=== PATIENT | male | born 1965 | race Asian ===

== ENCOUNTER 2016-09-25 08:09 | Outpatient (CLI) | payer BC ==
[2016-09-25 09:16] LABS: BASOPHILS % (AUTO) 0.3 % (0.0-2.0); EOSINOPHILS # (AUTO) 0.2 /CMM (0.0-0.7); EOSINOPHILS % (AUTO) 3.5 % (0.0-6.0); HEMATOCRIT 48 % (39-51); HEMOGLOBIN 16.2 g/dL (13.5-17.5); LYMPHOCYTES # (AUTO) 2.2 /CMM (0.8-4.8); LYMPHOCYTES % (AUTO) 39.9 % (20.0-44.0); MEAN CORPUSCULAR HEMOGLOBIN 29 PG (26.0-33.0); MEAN CORPUSCULAR HGB CONC 34 g/dl (31.0-36.0); MEAN CORPUSCULAR VOLUME 86 fL (80-96); MONOCYTES # (AUTO) 0.3 /CMM (0.1-1.30); MONOCYTES % (AUTO) 4.8 % (2.0-12.0); NEUTROPHILS # (AUTO) 2.9 /CMM (1.8-8.9); NEUTROPHILS % (AUTO) 51.5 % (43.0-81.0); PLATELET COUNT (AUTO) 177 /CMM (150-450); RDW COEFFICIENT OF VARIATION 12.5 (11.5-15.0); WHITE BLOOD COUNT (AUTO) 5.6 K/uL (4.3-11.0)
[2016-09-25 09:31] LABS: APPEARANCE,URINE CLEAR (CLEAR); BILIRUBIN,URINE NEGATIVE (NEGATIVE); BLOOD, URINE NEGATIVE Ery/uL (NEGATIVE); COLOR,URINE YELLOW (YELLOW); KETONES,URINE NEGATIVE (NEGATIVE); LEUKOCYTE ESTERASE ,URINE NEGATIVE (NEGATIVE); NITRITE, URINE NEGATIVE (NEGATIVE); PROTEIN,URINE NEGATIVE (NEGATIVE); UGLUCOSE 3+ mg/dL (NEGATIVE); UROBILINOGEN,URINE 0.2 EU/dL (0.2)
[2016-09-25 09:34] LABS: ADD URINE CULTURE NO; BACTERIA,URINE None seen /HPF (None Seen); RBC,URINE 0-2 /HPF (0-2); SQUAMOUS EPITHELIAL CELL,UR 0-2 /HPF (None Seen); WBC,URINE 0-2 /HPF (0-3)
[2016-09-25 09:37] LABS: ALBUMIN 4.1 g/dL (3.4-5.0); BILIRUBIN,TOTAL 0.7 mg/dL (0.2-1.0); CALCIUM, SERUM 9.1 mg/dL (8.5-10.1); CREATININE 0.9 mg/dL (0.6-1.3); POTASSIUM 4.4 mmol/L (3.5-5.1); TOTAL PROTEIN, SERUM 7.7 g/dL (6.4-8.2)
[2016-09-25 09:42] LABS: THYROID STIMULATING HORMONE 0.373 uIU/mL (0.358-3.74)
== END 2016-09-25 23:59 | disposition home or self-care (01) ==
LOC: CARD 08:09
PROVIDERS: ATTEND Family Medicine
DX: Z00.01 Encounter for general adult medical examination with abnormal findings (principal); E11.9 Type 2 diabetes mellitus without complications; I45.19 Other right bundle-branch block
CPT/HCPCS: 36415; 80053-TC; 80061-TC; 81000-TC; 84439-TC; 84443-TC; 85025-TC; 93307-TC

== ENCOUNTER 2016-10-01 09:03 | Outpatient (CLI) | payer BC | END 2016-10-01 23:59 | disposition home or self-care (01) | LOC: RAD 09:03 | PROVIDERS: ATTEND Family Medicine | DX: R76.11 Nonspecific reaction to tuberculin skin test without active tuberculosis (principal) | CPT/HCPCS: 71020-TC ==

== ENCOUNTER 2017-09-03 08:32 | Outpatient (CLI) | payer BC ==
[2017-09-03 09:09] LABS: BASOPHILS % (AUTO) 0.6 % (0.0-2.0); EOSINOPHILS # (AUTO) 0.2 /CMM (0.0-0.7); EOSINOPHILS % (AUTO) 3.3 % (0.0-6.0); HEMATOCRIT 46 % (39-51); HEMOGLOBIN 15.7 g/dL (13.5-17.5); LYMPHOCYTES # (AUTO) 2.6 /CMM (0.8-4.8); LYMPHOCYTES % (AUTO) 37.2 % (20.0-44.0); MEAN CORPUSCULAR HEMOGLOBIN 30 PG (26.0-33.0); MEAN CORPUSCULAR HGB CONC 34 g/dl (31.0-36.0); MEAN CORPUSCULAR VOLUME 87 fL (80-96); MONOCYTES # (AUTO) 0.3 /CMM (0.1-1.30); MONOCYTES % (AUTO) 5.1 % (2.0-12.0); NEUTROPHILS # (AUTO) 3.7 /CMM (1.8-8.9); NEUTROPHILS % (AUTO) 53.8 % (43.0-81.0); PLATELET COUNT (AUTO) 188 /CMM (150-450); RDW COEFFICIENT OF VARIATION 12.2 (11.5-15.0); WHITE BLOOD COUNT (AUTO) 6.9 K/uL (4.3-11.0)
[2017-09-03 09:37] LABS: ALBUMIN 3.9 g/dL (3.4-5.0); BILIRUBIN,TOTAL 0.6 mg/dL (0.2-1.0); CALCIUM, SERUM 9.2 mg/dL (8.5-10.1); CREATININE 0.9 mg/dL (0.6-1.3); POTASSIUM 4.3 mmol/L (3.5-5.1); TOTAL PROTEIN, SERUM 7.8 g/dL (6.4-8.2)
[2017-09-03 09:41] LABS: FREE T4 (FREE THYROXINE) 1.08 ng/dL (0.76-1.46); T4 (THYROXINE) 9.2 ug/dL (4.7-13.3); THYROID STIMULATING HORMONE 0.646 uIU/mL (0.358-3.74)
== END 2017-09-03 23:59 | disposition home or self-care (01) ==
LOC: LAB 08:32
PROVIDERS: ATTEND Family Medicine
DX: E11.65 Type 2 diabetes mellitus with hyperglycemia (principal); M10.9 Gout, unspecified
CPT/HCPCS: 36415; 80053-TC; 80061-TC; 84436-TC; 84439-TC; 84443-TC; 84550-TC; 85025-TC

== ENCOUNTER 2017-10-21 08:52 | Outpatient (CLI) | payer BC ==
[2017-10-21 09:50] LABS: BASOPHILS % (AUTO) 0.7 % (0.0-2.0); EOSINOPHILS % (AUTO) 3.9 % (0.0-6.0); HEMATOCRIT 45 % (39-51); HEMOGLOBIN 15.2 g/dL (13.5-17.5); LYMPHOCYTES # (AUTO) 2.3 /CMM (0.8-4.8); LYMPHOCYTES % (AUTO) 38.5 % (20.0-44.0); MEAN CORPUSCULAR HGB CONC 34 g/dl (31.0-36.0); MEAN CORPUSCULAR VOLUME 87 fL (80-96); MONOCYTES # (AUTO) 0.3 /CMM (0.1-1.30); MONOCYTES % (AUTO) 5.5 % (2.0-12.0); NEUTROPHILS % (AUTO) 51.4 % (43.0-81.0); PLATELET COUNT (AUTO) 200 /CMM (150-450); RDW COEFFICIENT OF VARIATION 12.4 (11.5-15.0); RED BLOOD CELL COUNT(AUTO) 5.14 MIL/uL (4.5-6.0); WHITE BLOOD COUNT (AUTO) 5.9 K/uL (4.3-11.0)
[2017-10-21 09:58] LABS: APPEARANCE,URINE CLEAR (CLEAR); BILIRUBIN,URINE NEGATIVE (NEGATIVE); BLOOD, URINE TRACE-INTA Ery/uL (NEGATIVE); COLOR,URINE YELLOW (YELLOW); KETONES,URINE NEGATIVE (NEGATIVE); LEUKOCYTE ESTERASE ,URINE NEGATIVE (NEGATIVE); NITRITE, URINE NEGATIVE (NEGATIVE); PROTEIN,URINE NEGATIVE (NEGATIVE); UGLUCOSE TRACE mg/dL (NEGATIVE); UROBILINOGEN,URINE 0.2 EU/dL (0.2)
[2017-10-21 10:02] LABS: BACTERIA,URINE None seen /HPF (None Seen); RBC,URINE 0-2 /HPF (0-2); SQUAMOUS EPITHELIAL CELL,UR 0-2 /HPF (None Seen); WBC,URINE 0-2 /HPF (0-3)
[2017-10-21 10:24] LABS: ALBUMIN 3.7 g/dL (3.4-5.0); BILIRUBIN,TOTAL 0.4 mg/dL (0.2-1.0); CREATININE 0.8 mg/dL (0.6-1.3); POTASSIUM 4.1 mmol/L (3.5-5.1); TOTAL PROTEIN, SERUM 7.4 g/dL (6.4-8.2)
[2017-10-21 10:25] LABS: THYROID STIMULATING HORMONE 1.055 uIU/mL (0.358-3.74)
[2018-01-17] MEDS ORDERED: METF-442 PO (03:24)
== END 2017-10-21 23:59 | disposition home or self-care (01) ==
LOC: LAB 08:52
PROVIDERS: ATTEND Family Medicine
DX: Z23 Encounter for immunization (principal); E11.65 Type 2 diabetes mellitus with hyperglycemia
CPT/HCPCS: 36415; 80053-TC; 80061-TC; 81000-TC; 84436-TC; 84439-TC; 84443-TC; 85025-TC

== ENCOUNTER 2017-12-18 20:19 | Emergency (ER) | payer BC ==
[~2017-12-18] VITALS: Ht 175.3 cm; Wt 63.5 kg
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
[2017-12-18] MEDS ORDERED: IBUPROFEN 400 MG TABLET PO ONE (21:30)
[2017-12-18] MEDS ORDERED: IBUPROFEN 400 MG TABLET ONE (22:02)
[2017-12-18 23:10] VITALS: BP 118/74
== END 2017-12-18 23:10 | disposition home or self-care (01) ==
LOC: ER 20:26
DX: S40.012A Contusion of left shoulder, initial encounter (principal); F17.200 Nicotine dependence, unspecified, uncomplicated; V43.52XA Car driver injured in collision with other type car in traffic accident, initial encounter; Y93.89 Activity, other specified; Y92.413 State road as the place of occurrence of the external cause; Y99.8 Other external cause status
CPT/HCPCS: 73030; 99284; A4606; Z7610

== ENCOUNTER 2018-01-16 21:29 | Inpatient (IN) | payer BC ==
[~2018-01-16] VITALS: Ht 175.3 cm; Wt 62.1 kg
--- NOTE | 2018-01-16 21:29 | NUR ---
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 PT IS HYPERTENSIVE AND TACHYCARDIC BUT OTHERWISE VSS A/OX4 ABLE TO MAKE NEEDS KNOWN. NO ACUTE DISTRESS NOTED AT THIS TIME. WILL CONTINUE TO MONITOR FOR ANY CHANGES DURING THE SHIFT.
--- NOTE | 2018-01-16 21:45 | NUR ---
Ibuprofen given for fever pending ERMD evaluation
[2018-01-16] MEDS ORDERED: IBUPROFEN 600 MG TABLET PO ONE ×2 (21:47→22:00)
[2018-01-16] MEDS ORDERED: CLINDAMYCIN 600 MG in IV D5W 100 ML IV ONE (22:30)
[2018-01-16] MEDS ORDERED: IV NS 0.9% 1,000 ML BAG IV ONE (22:30)
--- NOTE | 2018-01-16 22:47 | NUR ---
pt to ct via jarod
[2018-01-16] MEDS ORDERED: CLINDAMYCIN 900 MG/6 ML VIAL ONE (22:50)
[2018-01-16 23:14] LABS: EOSINOPHILS % (AUTO) 0.7 % (0.0-6.0); HEMATOCRIT 47 % (39-51); HEMOGLOBIN 15.9 g/dL (13.5-17.5); LYMPHOCYTES # (AUTO) 0.7 /CMM (0.8-4.8); LYMPHOCYTES % (AUTO) 6.2 % (20.0-44.0); MEAN CORPUSCULAR HEMOGLOBIN 30 PG (26.0-33.0); MEAN CORPUSCULAR HGB CONC 34 g/dl (31.0-36.0); MEAN CORPUSCULAR VOLUME 89 fL (80-96); MONOCYTES # (AUTO) 0.1 /CMM (0.1-1.30); MONOCYTES % (AUTO) 0.9 % (2.0-12.0); NEUTROPHILS # (AUTO) 10.6 /CMM (1.8-8.9); NEUTROPHILS % (AUTO) 92.2 % (43.0-81.0); PLATELET COUNT (AUTO) 171 /CMM (150-450); RDW COEFFICIENT OF VARIATION 12.2 (11.5-15.0); RED BLOOD CELL COUNT(AUTO) 5.32 MIL/uL (4.5-6.0); WHITE BLOOD COUNT (AUTO) 11.5 K/uL (4.3-11.0)
[2018-01-16 23:23] LABS: CALCIUM, SERUM 8.9 mg/dL (8.5-10.1); CARBON DIOXIDE 29 mmol/L (21-32); CHLORIDE 98 mmol/L (98-107); CREATININE 0.9 mg/dL (0.6-1.3); GLUCOSE 184 mg/dL (74-106); POTASSIUM 3.5 mmol/L (3.5-5.1); SODIUM SERUM 136 mmol/L (136-145); UREA NITROGEN, BLOOD 8 mg/dL (7-18)
[2018-01-16] MEDS ORDERED: ACETAMINOPHEN ES 500 MG TABLET ONE (23:27)
[2018-01-16] MEDS ORDERED: ACETAMINOPHEN ES 500 MG TABLET PO ONE (23:30)
--- NOTE | 2018-01-16 23:34 | NUR ---
LACTIC ACID 2.2 PER LAB
[2018-01-16 23:53] LABS: BILIRUBIN,DIRECT 0.2 mg/dL (0.0-0.2); BILIRUBIN,TOTAL 1.1 mg/dL (0.2-1.0)
[2018-01-17] MEDS ORDERED: AMOX/CLAVULANATE 875 MG TABLET PO ONE
[2018-01-17] MEDS ORDERED: AMOX/CLAVULANATE 875 MG TABLET ONE (00:05)
--- NOTE | 2018-01-17 01:49 | NUR ---
ROOM 203 MS
[2018-01-17] MEDS ORDERED: ACETAMINOPHEN 325 MG TABLET PO PRN (02:30)
[2018-01-17] MEDS ORDERED: MAGNESIUM HYDROXIDE 30 ML UDC PO PRN (02:30)
[2018-01-17] MEDS ORDERED: HYDROCODONE/APAP 10/325MG 1 EA TABLET PO PRN (02:30)
[2018-01-17] MEDS ORDERED: ONDANSETRON HCL/PF 4 MG/2 ML VIAL IVP PRN (02:30)
[2018-01-17] MEDS ORDERED: Z GUARD REMEDY 2 OZ OINT TP PRN (02:30)
[2018-01-17] MEDS ORDERED: MAG HYDROX/AL HYDROX/SIMETH 30 ML UDC PO PRN (02:30)
--- NOTE | 2018-01-17 02:43 | NUR ---
MS RN OPENING NOTES: RECEIVED PT WITH 2 FAMILY MEMBERS AT BEDSIDE. PT IS ON ROOM AIR AND TOLERATING WELL. NO SOB NOTED. NO S/S OF DISTRESS. PT HAS IV ON R AC AND IS TO BE STARTED ON FLUIDS IV NS AT 75ML/HR. CALL LIGHT WITHIN PT'S REACH. BED KEPT IN LOW, LOCKED POSITION, AND SIDE RAILS X 2UP. WILL CONTINUE TO MONITOR PT.
[2018-01-17 03:00] VITALS: BP 104/54
[2018-01-17] MEDS: IV NS 0.9% 1,000 ML IV PRN ×2 (03:11→22:12)
[2018-01-17 03:13] VITALS: BP 104/54
[2018-01-17] MEDS ORDERED: INDO50CA14 PO (03:24)
[2018-01-17] MEDS ORDERED: ALLO100T PO (03:24)
[2018-01-17] MEDS ORDERED: LISI2.5T2 PO (03:24)
[2018-01-17] MEDS ORDERED: METF10004 PO (03:24)
[2018-01-17] MEDS ORDERED: COLC0.6T67 PO (03:24)
[2018-01-17] MEDS ORDERED: ATOR10TA PO (03:24)
[2018-01-17] MEDS ORDERED: CLINDAMYCIN 900 MG/6 ML VIAL ONE (05:01)
[2018-01-17] MEDS: CLINDAMYCIN 600 MG in IV NS 0.9% 50 ML IV SCH ×3 (05:25→21:00)
--- NOTE | 2018-01-17 05:25 | NUR ---
MS RN NOTES: CLINDAMYCIN IV WAS OVERRODE BY CREPING MACHINE OPERATOR, CARMINA.
--- NOTE | 2018-01-17 06:21 | NUR ---
MS RN CLOSING NOTES: ALL NEEDS WERE ATTENDED AND ANTICIPATED FOR. PT KEPT CLEAN, DRY, AND COMFORTABLE. PT DOES NOT WANT TO CHANGE IN GOWN. PT ON ROOM AIR AND TOLERATING WELL. PT ASLEEP AT THIS TIME. PT HAS IV ON R AC AND IS BEING INFUSED WITH IV NS AT 75ML/HR. CALL LIGHT WITHIN PT'S REACH. BED KEPT IN LOW, LOCKED POSITION, AND SIDE RAILS X 2UP. WILL ENDORSE TO AM NURSE FOR CICI.
--- NOTE | 2018-01-17 07:10 | NUR ---
RN NOTES PATIENT A/OX4, VERBALLY RESPONSIVE, STILL C/O PAIN ON LEFT UPPER TEETH, ON IVF NS AT 75ML/HR. BREATHING EVEN AND UNLABORED, NO SOB NOTED, NEEDS ATTENDED AND MET, CALL LIGHT WITHINR EACH, WILL CONTINUE TO MONITOR.
[2018-01-17 08:00] VITALS: BP 90/58
[2018-01-17] MEDS: HYDROCODONE/APAP 5/325MG 1 EACH TABLET PO PRN ×2 (08:19→13:10)
[2018-01-17 10:10] LABS: BASOPHILS % (AUTO) 0.2 % (0.0-2.0); EOSINOPHILS % (AUTO) 1.2 % (0.0-6.0); HEMATOCRIT 38 % (39-51); HEMOGLOBIN 12.9 g/dL (13.5-17.5); LYMPHOCYTES # (AUTO) 0.9 /CMM (0.8-4.8); LYMPHOCYTES % (AUTO) 9.2 % (20.0-44.0); MEAN CORPUSCULAR HEMOGLOBIN 30 PG (26.0-33.0); MEAN CORPUSCULAR HGB CONC 34 g/dl (31.0-36.0); MEAN CORPUSCULAR VOLUME 89 fL (80-96); MONOCYTES # (AUTO) 0.4 /CMM (0.1-1.30); MONOCYTES % (AUTO) 4.3 % (2.0-12.0); NEUTROPHILS # (AUTO) 8.6 /CMM (1.8-8.9); NEUTROPHILS % (AUTO) 85.1 % (43.0-81.0); PLATELET COUNT (AUTO) 154 /CMM (150-450); RDW COEFFICIENT OF VARIATION 12.6 (11.5-15.0); RED BLOOD CELL COUNT(AUTO) 4.25 MIL/uL (4.5-6.0); WHITE BLOOD COUNT (AUTO) 10.1 K/uL (4.3-11.0)
[2018-01-17 10:22] LABS: CALCIUM, SERUM 8.2 mg/dL (8.5-10.1); POTASSIUM 3.8 mmol/L (3.5-5.1)
[2018-01-17] MEDS ORDERED: *INSULIN REGULAR(HUMULIN R)HUM 100 UNIT/ML VIAL SQ PRN (11:00)
[2018-01-17] MEDS: LISINOPRIL (5MG) 5 MG TABLET PO SCH (11:00)
[2018-01-17] MEDS ORDERED: DEXTROSE 50%-WATER 50 ML DISP.SYRIN IV PRN (11:00)
[2018-01-17] MEDS: BLOOD SUGAR DIAGNOSTIC 1 EACH STRIP VI SCH ×3 (12:06→21:59)
[2018-01-17] MEDS: INSULIN REGULAR, HUMAN 100 UNIT/ML 3 ML VIAL SQ PRN ×3 (13:09→22:08)
[2018-01-17 16:00] VITALS: BP 100/60
[2018-01-17] MEDS: METFORMIN 500 MG TABLET PO SCH (16:27)
[2018-01-17] MEDS ORDERED: ATORVASTATIN 10 MG TABLET PO SCH (18:00)
--- NOTE | 2018-01-17 18:03 | NUR ---
RN NOTES PATIENT A/OX4, IN NO DISTRESS, NO SIGNIFICANT CHANGE, EFFECTIVE PAIN MANAGEMENT REGIMEN. IVF INFUSING AND TOLERATING WELL, INDEPENDENT WITH ADLS, NEEDS ATTENDED AND MET, CALL LIGHT WITHIN REACH, WILL CONTINUE TO MONITOR.
--- NOTE | 2018-01-17 19:43 | NUR ---
MS RN NOTES RECEIVED ON BED A/O 4,BREATHING REGULAR,NOT IN ANY FORM OF DISTRESS.CLAIMED SLIGHT TOOTH ACHE THIS TIME.PRESENT IVF INFUSING WELL ON RIGHT AC #20 VIA IV PUMP.CALL LIGHT IN REACH,NEEDS ANTICIPATED.
[2018-01-17 20:00] VITALS: BP 112/70
--- NOTE | 2018-01-17 22:00 | NUR ---
MS RN NOTES ACCU-CHECK BLOOD SUGAR CHECK 176,COVERED WITH HUMULIN R 3 UNITS PER SLIDING SCALE.SNACKS PROVIDED AT BEDSIDE.
--- NOTE | 2018-01-18 03:08 | NUR ---
MS RN NOTES AWAKE,HAVING HEADACHE 3/10 ON PAIN SCALE AND FEELING WARMTH, MEDICATED WITH TYLENOL 650MG PO PER PATIENT REQUEST.
[2018-01-18] MEDS: CLINDAMYCIN 600 MG in IV NS 0.9% 50 ML IV SCH ×2 (04:58→14:06)
--- NOTE | 2018-01-18 05:30 | NUR ---
MS RN NOTES CLAIMED HEADACHE SUBSIDED AFTER TAKING TYLENOL.ORAL TEMPERATURE THIS TIME 98.4
--- NOTE | 2018-01-18 05:40 | NUR ---
MS RN NOTES ACCU-CHECK BLOOD SUGAR CHECK 206,WILL COVER WITH HUMULIN R 6 UNITS PER SLIDING SCALE.
[2018-01-18] MEDS: BLOOD SUGAR DIAGNOSTIC 1 EACH STRIP VI SCH ×2 (05:49→12:22)
--- NOTE | 2018-01-18 07:08 | NUR ---
MS RN NOTES AFEBRILE,HEADACHE SUBSIDED.IVF INFUSING.HUMULIN R 6 UNITS GIVEN SQ ON LEFT DELTOID FOR BLOOD SUGAR 207.IN NO ACUTE DISTRESS.ENDORSED TO MORNING NURSE FOR CICI.
[2018-01-18 07:09] LABS: BASOPHILS % (AUTO) 0.3 % (0.0-2.0); EOSINOPHILS % (AUTO) 0.4 % (0.0-6.0); HEMATOCRIT 42 % (39-51); HEMOGLOBIN 14.2 g/dL (13.5-17.5); LYMPHOCYTES # (AUTO) 1.3 /CMM (0.8-4.8); MEAN CORPUSCULAR HEMOGLOBIN 30 PG (26.0-33.0); MEAN CORPUSCULAR HGB CONC 34 g/dl (31.0-36.0); MEAN CORPUSCULAR VOLUME 89 fL (80-96); MONOCYTES # (AUTO) 0.5 /CMM (0.1-1.30); MONOCYTES % (AUTO) 6.5 % (2.0-12.0); NEUTROPHILS # (AUTO) 5.6 /CMM (1.8-8.9); NEUTROPHILS % (AUTO) 75.8 % (43.0-81.0); PLATELET COUNT (AUTO) 144 /CMM (150-450); RDW COEFFICIENT OF VARIATION 12.9 (11.5-15.0); RED BLOOD CELL COUNT(AUTO) 4.69 MIL/uL (4.5-6.0); WHITE BLOOD COUNT (AUTO) 7.4 K/uL (4.3-11.0)
[2018-01-18 07:11] LABS: CALCIUM, SERUM 7.8 mg/dL (8.5-10.1); CREATININE 0.9 mg/dL (0.6-1.3); MAGNESIUM 1.7 mg/dL (1.8-2.4); PHOSPHORUS 3.9 mg/dL (2.5-4.9); POTASSIUM 3.5 mmol/L (3.5-5.1)
[2018-01-18] MEDS: INSULIN REGULAR, HUMAN 100 UNIT/ML 3 ML VIAL SQ PRN ×2 (07:12→12:30)
[2018-01-18 07:14] LABS: THYROID STIMULATING HORMONE 0.223 uIU/mL (0.358-3.74)
[2018-01-18 08:00] VITALS: BP 112/66
[2018-01-18 08:18] VITALS: BP 112/66
[2018-01-18] MEDS: LISINOPRIL (5MG) 5 MG TABLET PO SCH (08:18)
[2018-01-18] MEDS: METFORMIN 500 MG TABLET PO SCH (08:18)
--- NOTE | 2018-01-18 08:20 | NUR ---
MS RN NOTES PATIENT IN BED, A/O X4 BREATHING ON ROOM AIR WITH NO SOB, REPORTED MINIMAL PAIN IN HIS LEFT FACE DUE TO TOOTH ACHE, OFFERED PAIN MEDICATION, PER PATIENT HE CAN TOLERATE PAIN LEVEL AT THIS TIME. IVC IN RIGHT AC WITH IVF INFUSING AT 75ML/HR. CALL LIGHT WITHIN REACH, WILL CONT TO MONITOR.
[2018-01-18] MEDS ORDERED: ALLOPURINOL 100 MG TABLET PO SCH (09:00)
[2018-01-18] MEDS ORDERED: COLCHICINE 0.6 MG TABLET PO SCH (09:00)
[2018-01-18] MEDS: Magnesium 1GM/D5W 100ML PREMIX 100 ML IV SCH ×2 (11:13→12:22)
[2018-01-18] MEDS ORDERED: CLIN300C11 PO (12:45)
--- NOTE | 2018-01-18 13:25 | NUR ---
Visited pt today. Pt states good appetite. Per nursing, average 100% po intake, appears adequate. Pt reports drinks regular soda/sweetened tea at home, doesn't check his blood glucose at home, doesn't remember his last Bg or A1C levels at the doctor's visit. A1C pending. Provided diet education to pt on [facility] diet. Pt receptive to diet education and verbalized understanding. Noted MD order to discharge pt home today.
[2018-01-18] MEDS: HYDROCODONE/APAP 5/325MG 1 EACH TABLET PO PRN (14:33)
--- NOTE | 2018-01-18 15:26 | NUR ---
MS an/syq 13 nav/c2 operator Patient has been cleared for discharge home by . VS remains stable, ambulating independently. Left facial pain due to tooth ache, medicated with PRN norco with relief. Skin intact. Discharge instruction given to patient, verbalized understanding. Prescription and personal belongings send to patient upon discharge. Patient left hosp in stable condition via private car.
== END 2018-01-18 15:37 | disposition home or self-care (01) | DRG 872 ==
LOC: ER 21:31 → MEDSG2 01-17 01:57
PROVIDERS: ADMIT Nurse Practitioner Acute Care; ATTEND Internal Medicine
DX: A41.9 Sepsis, unspecified organism (principal); E87.2 Acidosis; Z88.0 Allergy status to penicillin; Z79.899 Other long term (current) drug therapy; Z79.84 Long term (current) use of oral hypoglycemic drugs; J32.0 Chronic maxillary sinusitis; E11.9 Type 2 diabetes mellitus without complications; E78.5 Hyperlipidemia, unspecified; I10 Essential (primary) hypertension; M10.9 Gout, unspecified; K05.00 Acute gingivitis, plaque induced
CPT/HCPCS: 36415; 70486-TC; 80048-TC; 80061-TC; 82247-TC; 82248-TC; 82962-TC; 83605-TC; 83735-TC; 84100-TC; 84443-TC; 85025-TC; 87040-TC; 87081-TC; A4216; A4606; J1815; J3475; J3490; J7030; J7060; Z7610

== ENCOUNTER 2018-10-25 10:30 | Outpatient (CLI) | payer BC ==
[~2018-10-25 10:30] MED LIST: ALLO100T PO; ATOR10TA PO; CLIN300C11 PO; COLC0.6T67 PO; INDO50CA14 PO; LISI2.5T2 PO; METF-442 PO
[2018-10-25 10:35] VITALS: BP 113/76
== END 2018-10-25 23:59 | disposition home or self-care (01) ==
LOC: MSC 10:30
PROVIDERS: ATTEND Nurse Practitioner Acute Care
DX: E11.9 Type 2 diabetes mellitus without complications (principal); I10 Essential (primary) hypertension; F17.210 Nicotine dependence, cigarettes, uncomplicated; E78.5 Hyperlipidemia, unspecified; M10.9 Gout, unspecified; E44.0 Moderate protein-calorie malnutrition; J32.9 Chronic sinusitis, unspecified; Z79.84 Long term (current) use of oral hypoglycemic drugs; Z82.3 Family history of stroke; Z82.49 Family history of ischemic heart disease and other diseases of the circulatory system
CPT/HCPCS: 82962-TC

== ENCOUNTER 2018-10-26 08:02 | Outpatient (CLI) | payer BC ==
[2018-10-26 08:48] LABS: APPEARANCE,URINE CLEAR (CLEAR); BILIRUBIN,URINE NEGATIVE (NEGATIVE); BLOOD, URINE TRACE Ery/uL (NEGATIVE); COLOR,URINE YELLOW (YELLOW); KETONES,URINE NEGATIVE (NEGATIVE); LEUKOCYTE ESTERASE ,URINE NEGATIVE (NEGATIVE); NITRITE, URINE NEGATIVE (NEGATIVE); PROTEIN,URINE NEGATIVE (NEGATIVE); UGLUCOSE 3+ mg/dL (NEGATIVE); UROBILINOGEN,URINE 0.2 EU/dL (0.2)
[2018-10-26 08:53] LABS: BASOPHILS % (AUTO) 0.7 % (0.0-2.0); EOSINOPHILS % (AUTO) 4.1 % (0.0-6.0); HEMATOCRIT 49 % (39-51); HEMOGLOBIN 16.9 g/dL (13.5-17.5); LYMPHOCYTES % (AUTO) 40.4 % (20.0-44.0); MEAN CORPUSCULAR HGB CONC 34 g/dl (31.0-36.0); MEAN CORPUSCULAR VOLUME 89 fL (80-96); MONOCYTES % (AUTO) 5.3 % (2.0-12.0); NEUTROPHILS % (AUTO) 49.5 % (43.0-81.0); PLATELET COUNT (AUTO) 195 /CMM (150-450); RED BLOOD CELL COUNT(AUTO) 5.58 MIL/uL (4.5-6.0); WHITE BLOOD COUNT (AUTO) 6.4 K/uL (4.3-11.0)
[2018-10-26 08:54] LABS: LYMPHOCYTES # (AUTO) 2.6 /CMM (0.8-4.8); MONOCYTES # (AUTO) 0.3 /CMM (0.1-1.30); NEUTROPHILS # (AUTO) 3.2 /CMM (1.8-8.9)
[2018-10-26 08:55] LABS: BACTERIA,URINE Rare /HPF (None Seen); SQUAMOUS EPITHELIAL CELL,UR Rare /HPF (None Seen); WBC,URINE 0-2 /HPF (0-3)
[2018-10-26 09:02] LABS: ALBUMIN 4.2 g/dL (3.4-5.0); BILIRUBIN,TOTAL 0.8 mg/dL (0.2-1.0); CALCIUM, SERUM 9.2 mg/dL (8.5-10.1); CREATININE 0.8 mg/dL (0.6-1.3); POTASSIUM 4.1 mmol/L (3.5-5.1); TOTAL PROTEIN, SERUM 7.8 g/dL (6.4-8.2)
== END 2018-10-26 23:59 | disposition home or self-care (01) ==
LOC: LAB 08:02
PROVIDERS: ATTEND Nurse Practitioner Acute Care
DX: E11.9 Type 2 diabetes mellitus without complications (principal)
CPT/HCPCS: 36415; 80053-TC; 80061-TC; 81000-TC; 85025-TC

== ENCOUNTER 2018-10-29 10:02 | Outpatient (CLI) | payer BC ==
[2018-10-29 10:16] VITALS: BP 115/77
== END 2018-10-29 23:59 | disposition home or self-care (01) ==
LOC: MSC 10:02
PROVIDERS: ATTEND Nurse Practitioner Acute Care
DX: Z09 Encounter for follow-up examination after completed treatment for conditions other than malignant neoplasm (principal); I10 Essential (primary) hypertension; E11.9 Type 2 diabetes mellitus without complications; E78.5 Hyperlipidemia, unspecified; M81.0 Age-related osteoporosis without current pathological fracture; F32.9 Major depressive disorder, single episode, unspecified; M10.9 Gout, unspecified

== ENCOUNTER 2018-11-16 08:00 | Outpatient (CLI) | payer BC ==
[2018-11-16 13:15] VITALS: BP 119/84
== END 2018-11-16 23:59 | disposition home or self-care (01) ==
LOC: MSC 08:00
PROVIDERS: ATTEND Nurse Practitioner Acute Care
DX: E11.65 Type 2 diabetes mellitus with hyperglycemia (principal); E78.5 Hyperlipidemia, unspecified; E78.1 Pure hyperglyceridemia; F32.9 Major depressive disorder, single episode, unspecified; M10.9 Gout, unspecified; Z71.6 Tobacco abuse counseling; F17.200 Nicotine dependence, unspecified, uncomplicated; E44.0 Moderate protein-calorie malnutrition; M81.0 Age-related osteoporosis without current pathological fracture; Z79.4 Long term (current) use of insulin

== ENCOUNTER 2020-07-10 08:39 | Outpatient (CLI) | payer BC ==
[~2020-07-10 08:39] MED LIST changes: -INDO50CA14 PO; +INDO50CA92 PO
[2020-07-10 10:07] LABS: BASOPHILS % (AUTO) 0.6 % (0.0-2.0); EOSINOPHILS % (AUTO) 2.5 % (0.0-6.0); HEMATOCRIT 49 % (39-51); HEMOGLOBIN 16.2 g/dL (13.5-17.5); LYMPHOCYTES # (AUTO) 2.7 /CMM (0.8-4.8); LYMPHOCYTES % (AUTO) 42.9 % (20.0-44.0); MEAN CORPUSCULAR HGB CONC 33 g/dl (31.0-36.0); MEAN CORPUSCULAR VOLUME 89 fL (80-96); MONOCYTES # (AUTO) 0.3 /CMM (0.1-1.30); MONOCYTES % (AUTO) 4.7 % (2.0-12.0); NEUTROPHILS # (AUTO) 3.1 /CMM (1.8-8.9); NEUTROPHILS % (AUTO) 49.3 % (43.0-81.0); PLATELET COUNT (AUTO) 214 /CMM (150-450); RED BLOOD CELL COUNT(AUTO) 5.53 MIL/uL (4.5-6.0); WHITE BLOOD COUNT (AUTO) 6.3 K/uL (4.3-11.0)
[2020-07-10 10:09] LABS: ALBUMIN 4.2 g/dL (3.4-5.0); BILIRUBIN,TOTAL 0.7 mg/dL (0.2-1.0); CALCIUM, SERUM 9.1 mg/dL (8.5-10.1); CREATININE 0.9 mg/dL (0.6-1.3); POTASSIUM 3.9 mmol/L (3.5-5.1); TOTAL PROTEIN, SERUM 7.8 g/dL (6.4-8.2)
[2020-07-10 10:42] LABS: THYROID STIMULATING HORMONE 0.313 uIU/mL (0.358-3.74); URIC ACID 6.8 mg/dL (2.6-7.2)
[2020-07-10 11:44] LABS: BILIRUBIN,URINE NEGATIVE (NEGATIVE); COLOR,URINE YELLOW (YELLOW); LEUKOCYTE ESTERASE ,URINE NEGATIVE (NEGATIVE); NITRITE, URINE NEGATIVE (NEGATIVE); PROTEIN,URINE NEGATIVE (NEGATIVE); UGLUCOSE >=1000 mg/dL (NEGATIVE); UROBILINOGEN,URINE 0.2 EU/dL (0.2)
[2020-07-10 11:48] LABS: BACTERIA,URINE Few /HPF (None Seen); HYALINE CASTS, URINE Rare /LPF (None Seen); RBC,URINE 0-2 /HPF (0-2); SQUAMOUS EPITHELIAL CELL,UR Rare /HPF (None Seen); WBC,URINE 0-2 /HPF (0-3)
== END 2020-07-10 23:59 | disposition home or self-care (01) ==
LOC: LAB 08:39
PROVIDERS: ATTEND Family Medicine
DX: E11.65 Type 2 diabetes mellitus with hyperglycemia (principal); E78.2 Mixed hyperlipidemia; E55.9 Vitamin D deficiency, unspecified; M10.9 Gout, unspecified
CPT/HCPCS: 36415; 80053-TC; 80061-TC; 81001; 82306; 84439-TC; 84443-TC; 84550-TC; 85025-TC

== ENCOUNTER 2021-06-11 15:39 | Outpatient (CLI) | payer BC ==
[~2021-06-11 15:39] MED LIST changes: -CLIN300C11 PO; +CLIN300C12 PO
== END 2021-06-11 23:59 | disposition home or self-care (01) ==
LOC: LAB 15:39
PROVIDERS: ATTEND Family Medicine
DX: Z20.822 Contact with and (suspected) exposure to COVID-19 (principal)
CPT/HCPCS: C9803; U0003